=== PATIENT | female | born 1980 | race Caucasian/White ===

== ENCOUNTER 2016-08-12 14:03 | Emergency (ER) | payer MEDICAID, OTHER ==
[~2016-08-12] VITALS: Ht 165.1 cm; Wt 76.1 kg
[2016-08-12 14:05] VITALS: Ht 165.1 cm; Wt 76.1 kg
[2016-08-12] MEDS ORDERED: METOCLOPRAMIDE 10 MG INJ IV STA (16:10)
[2016-08-12] MEDS ORDERED: SOD CHLORIDE 0.9% 1,000 ML IV STA (16:10)
[2016-08-12] MEDS ORDERED: DIPHENHYDRAMINE 50 MG INJ IV STA (16:10)
[2016-08-12] MEDS ORDERED: KETOROLAC 30 MG INJ IV STA (16:12)
[2016-08-12] MEDS ORDERED: FAMOTIDINE 20 MG INJ IV ONE (16:30)
--- NOTE | 2016-08-12 16:47 | ERD ---
ER Documentation Chief Complaint Date/Time DATE: 08/12/16 Chief Complaint Headache HPI The patient is a 36-year-old female who presents to the emergency department with complaint of headache for the past three days. The patient notes that her pain is localized to the occipital region of her head and radiates towards the right temporal region. The pain was [id number], and has been constant since initial presentation, though waxing and waning in intensity. The patient describes her pain as throbbing in nature, and rates it as 6/10 at this time. She denies any associated visual changes, diplopia, blurred vision or vision loss. Denies neck pain or neck stiffness. Denies dizziness, weakness, lethargy , difficulty with speech or ambulation. Denies confusion or focal weakness. Denies fevers, chills, cough, rhinorrhea, nasal congestion. Denies nausea or vomiting. The patient states that she took Tylenol approximately 3 hours ago, with minimal relief. Otherwise, she has not tried other medications. ROS All systems reviewed and are negative except as per history of present illness. Medications Home Meds Active Scripts Tramadol HCl (Tramadol HCl) 50 Mg Tablet, 50 MG PO Q4 Y for PAIN, #10 TAB Prov:MARICRUZ THOMAS PA-C 08/12/16 Allergies Allergies: Uncoded Allergies: STEROIDS (Allergy, Unknown, 08/12/16) PMhx/Soc Medical and Surgical Hx: pt denies Medical Hx, pt denies Surgical Hx Hx Alcohol Use: Yes Hx Substance Use: No Hx Tobacco Use: No Smoking Status: Never smoker Physical Exam Vitals Vital Signs Date Time Temp Pulse Resp B/P Pulse Ox O2 Delivery O2 Flow Rate FiO2 08/12/16 14:05 98.1 66 20 117/77 99 Physical Exam GENERAL: Well-developed, well-nourished, in no acute distress HEENT: Head is normocephalic, atraumatic. No scleral pallor or icterus. Pupils equal, round and reactive to light. Extraocular movements intact. Conjunctiva pink. Funduscopic examination with normal cup:disk ratio. No papilledema. No retinal hemorrhages. Moist mucous membranes. NECK: Supple. No nuchal rigidity. Full range of motion. RESPIRATORY: Lungs are clear to auscultation bilaterally. Equal breath sounds. Normal expiratory effort. CARDIOVASCULAR: Regular rate and rhythm. S1 and S2 normal. GASTROINTESTINAL: Abdomen is soft, nontender, and nondistended. EXTREMITIES: No clubbing, cyanosis, or edema. Normal skin perfusion. Full range of motion of both the upper and lower extremities bilaterally. Muscle tone is normal. No focal swelling or erythema. Distal pulses are palpable, 2+ bilaterally. Capillary refill is less than 2 seconds. NEUROLOGIC: The patient is awake, alert, oriented to person, place and time. Speech is fluent. Language parameters are intact. Follows commands well. Comprehension is intact. Cranial nerves II through XII are intact. Pupils are equal and reactive bilaterally. Extraocular movements are intact. There is no nystagmus. Facial sensation and facial movements are symmetrical. Uvula elevates symmetrically. Tongue is midline. Motor examination reveals 5/5 strength in bilateral upper and lower extremities. Sensory examination is grossly intact to light touch. Reflexes symmetrical. Normal [id number]-[id number] testing. No visual field deficits. Vision grossly intact. Gait is observed and normal, no ataxia. INTEGUMENT: Skin is clean, dry and intact. No rashes, lesions or petechiae present. Normal turgor. PSYCHIATRIC: Appropriate; Cooperative. Results 24 hrs Current Medications Medications (Trade) Dose Ordered Sig/Jose L Route PRN Reason Start Time Stop Time Status Last Admin Dose Admin Sodium Chloride (NS) 1,000 ml @ 1,000 mls/hr Q1H STAT IV 08/12/16 16:10 08/12/16 17:09 DC 08/12/16 16:40 Metoclopramide HCl (Reglan) 10 mg ONCE STAT IV 08/12/16 16:10 08/12/16 16:13 DC 08/12/16 16:39 Diphenhydramine HCl (Benadryl) 25 mg ONCE STAT IV 08/12/16 16:10 08/12/16 16:13 DC 08/12/16 16:39 Famotidine (Pepcid Iv) 20 mg ONCE ONCE IV 08/12/16 16:30 08/12/16 16:31 DC 08/12/16 16:39 Ketorolac Tromethamine (Toradol) 30 mg ONCE STAT IV 08/12/16 16:12 08/12/16 16:13 DC 08/12/16 16:39 Procedures/MDM EMERGENCY DEPARTMENT COURSE: The patient was stable throughout the ED course. IV access established by nursing staff. Fluids, Toradol, Reglan and Benadryl administered. On reevaluation, the patient reports no new complaints, and significantly decreased headache. Throughout the patient's ED stay, she asked multiple times for CT head to be performed. Risks of imaging discussed, including those of radiation exposure. The patient's case was discussed with ED supervising physician, Dr. Mc Nunn, who also evaluated the patient bedside. Plan was made for CT head due to patient's repetitive requests. Patient understands the risks. DIAGNOSTIC TESTS AND INTERPRETATION: PROCEDURE: CT Brain without contrast. CLINICAL INDICATION: Headache. TECHNIQUE: A CT of the brain was performed on a [employer] 64-slice CT scanner utilizing axial imaging from the skull base through the vertex without IV contrast. Multiplanar reformatted images were made. Images were reviewed on a PACS workstation. The CTDIvol is 44.73 mGy and the DLP is 630.2 mGycm. One or the following dose reduction techniques were used: -Automated exposure control. -Adjustment of the mA and/or KV according to patient's size. -Use of iterative reconstruction technique COMPARISON: None FINDINGS:There is no intracranial hemorrhage, mass effect, or midline shift. No extra-axial fluid collection is seen. The ventricles and sulci are normal in size and configuration. The density of the brain is normal, and the funk white matter differentiation appears well-preserved. The visualized paranasal sinuses and osseous structures are grossly unremarkable. IMPRESSION: 1. No evidence of acute intracranial pathology. 2. The brain is normal in appearance. Physician Miriam Date Time Electronically viewed and signed by Physician Miriam on 08/12/2016 18: 19 MEDICAL DECISION MAKING: This is a 36-year-old female presenting to the emergency department with a headache for the past 3 days. The patient had no significant abnormalities on physical examination, exhibited no altered mental status, neurologic deficits or meningeal signs. The differential diagnosis includes, but is not limited to, subarachnoid hemorrhage, intracerebral bleeding , cerebral aneurysm, meningitis, encephalitis, brain abscess, embolic stroke, brain tumor, temporal arteritis, sinusitis, migraine headache, tension headache , acute glaucoma, cluster headache, pseudotumor cerebri, encephalopathy. No acute abnormalities were noted on head CT ordered. Her condition improved during her stay. After rest and administration of Toradol, Benadryl, Reglan and a liter of fluids the patient reports no new complaints and significantly decreased pain. Upon my review and interpretation of the patient's presentation and overall ER course, I believe the patient's symptoms are most consistent with a headache. At this time, the patient is in stable condition and therefore can be discharged home with a prescription for Tramadol (as she does not like to take Ibuprofen secondary to her gastritis) and given strict return precautions for signs of deteriorating or worsening condition. She is advised to follow up with her primary care provider for reevaluation and further management within 2- 3 days, or to return to the ER sooner for any worsening symptoms. I shared my medical decision making and plan with the patient at length and in great detail , and the patient verbally understands and agrees with the plan for further observation and care as an outpatient. At the time of discharge, all questions were answered. Departure Diagnosis: Primary Impression: Headache Headache type: unspecified Headache chronicity pattern: acute headache Intractability: not intractable Qualified Code: R51 - Acute nonintractable headache, unspecified headache type Condition: Stable Patient Instructions: Headache, Unspecified, Self-Care for Headaches Additional Instructions: Llame al doctor HIGINIO y kp rut LEANNE PARA DENTRO DE 2-3 [place].Dgale a la secretaria que nosotros le instruimos hacer esta leanne.Avise o llame si wei condicin se empeora antes de la leanne. Regresa aqui si peor o no mejor. MARICRUZ THOMAS PA-C Aug 12, 2016 16:47
--- NOTE | 2016-08-12 18:19 | RADRPT ---
PROCEDURE: CT Brain without contrast. CLINICAL INDICATION: Headache. TECHNIQUE: A CT of the brain was performed on a [employer] 64-slice CT scanner utilizing axial imaging from the skull base through the vertex without IV contrast. Multiplanar reformatted images were made. Images were reviewed on a PACS workstation. The CTDIvol is 44.73 mGy and the DLP is 630 .2 mGycm. One or the following dose reduction techniques were used: -Automated exposure control. -Adjustment of the mA and/or KV according to patient's size. -Use of iterative reconstruction technique COMPARISON: None FINDINGS: There is no intracranial hemorrhage, mass effect, or midline shift. No extra-axial fluid collection is seen. The ventricles and sulci are normal in size and configuration. The density of the brain is normal, and the funk white matter differentiation appears well-preserved. The visualized paranasal sinuses and osseous structures are grossly unremarkable. IMPRESSION: 1. No evidence of acute intracranial pathology. 2. The brain is normal in appearance. RPTAT: [facility] Physician Miriam Date Time Electronically viewed and signed by Physician Miriam on 08/12/2016 18:19 /
[2016-08-12] MEDS ORDERED: TRAM50TA2 PO (18:26)
== END 2016-08-12 18:47 | disposition home or self-care (01) ==
LOC: FTE 14:03
DX: R51 Headache (principal)
CPT/HCPCS: 70450; J1200; J1885; J2765; J7030; Z7610; 96374; 96375